=== PATIENT | female | born 2000 | race African-American/Black ===

== ENCOUNTER 2020-03-30 18:11 | Emergency (ER) | payer SELFPAY ==
[2020-03-30 19:30] VITALS: BP 156/92; PULSE 95; RESP 18; TEMP 36.6; O2SAT 100
[2020-03-30 22:05] VITALS: BP 147/86; PULSE 89; RESP 16; O2SAT 99
[2020-03-30] MEDS: KETOROLAC 15 MG/ML VIAL (*BKC) IV PUSH (22:06)
[2020-03-30] MEDS: diphenhydrAMINE HCl INJ 50 MG/ML VIAL 25 MG IV PUSH (22:06)
[2020-03-30] MEDS: PROCHLORPERAZINE EDISYLATE 10 MG/2 ML VIAL 5 MG IV PUSH (22:07)
[2020-03-30] MEDS: SODIUM CHLORIDE 0.9% IV 100 ML 400 ML (22:07)
--- NOTE | 2020-03-30 22:09 | ED.HA ---
HPI - Headache General Chief Complaint: Headache Stated Complaint: Headache Started Friday, Smelling Weird Things Time Seen by Provider: 03/30/20 21:08 Source: patient Mode of arrival: ambulatory Limitations: no limitations History of Present Illness HPI Narrative: A 19-year-old female comes into the emergency department tonight with complaints of a headache. Patient notes that its been behind her right eye. She endorses some numbness and tingling on the side associated with her headache as well. She does also describe some numbness and tingling in her right upper extremity. Patient states that she has had this complaint on and off since July. She states that it has been a muscular issue in the past. She notes that she has felt the peripheral numbness but never the headache like she has today. Patient denies any changes in vision, nausea or vomiting. Related Data Home Medications Medication Instructions Recorded Confirmed No Home Medications 03/30/20 03/30/20 Allergies Allergy/AdvReac Type Severity Reaction Status Date / Time No Known Allergies Allergy Verified 03/30/20 19:37 Review of Systems Review of Systems: Narrative: CONSTITUTIONAL: Denies fever, chills, or sweats. EYES: Denies visual changes, redness, or discharge. ENT: Denies rhinorrhea, congestion, sore throat, or otalgia. CARDIOVASCULAR: Denies chest pain, palpitations, or edema. RESPIRATORY: Denies cough or dyspnea. GASTROINTESTINAL: Denies abdominal pain, nausea, vomiting, or diarrhea. GENITOURINARY: Denies dysuria or hematuria. SKIN: Denies rash or itching. MUSCULOSKELETAL: Denies back pain, joint pain, or myalgia. NEUROLOGIC: Denies numbness, dizziness, or weakness. PSYCHIATRIC: Denies anxiety or depression. [facility] Social History Social History Gender identity (if verbalized by the patient): Female Exam Narrative: Exam Narrative: GENERAL: Well-appearing, well-nourished, and in no acute distress. HEAD: Normocephalic, atraumatic. EYES: PERRLA and EOMI. ENT: Nares clear, no rhinorrhea or epistaxis. Mucous membranes moist. Oropharynx without tonsillar hypertrophy exudate or other lesions. Bilateral TMs pearly mejia nonbulging NECK: Supple. No adenopathy or masses. No carotid bruits or JVD CHEST: Clear to auscultation. No respiratory distress. No wheezes rales or rhonchi HEART: Regular rate and rhythm. No murmur heard. Normal peripheral pulses. ABDOMEN: Soft, nontender, nondistended, normal active bowel sounds. EXTREMITIES: Normal range of motion. No edema. SKIN: Warm, dry, no rash. NEURO: No focal deficits. Alert and oriented x3. PSYCH: Normal mood and affect. Course Reevaluation(s) Reevaluation #1: Reevaluated and provided care update. Approximately an hour after the patient received her medication she stated that her migraine has completely resolved. She denies any further pain and states that the numbness feeling that she was getting on the side of her face has resolved as well. Patient states she is feeling much better and ready to go home. Time: 23:05 Vital Signs Vital signs: Vital Signs Temperature 36.6 C 03/30/20 19:30 Pulse Rate 95 03/30/20 19:30 Respiratory Rate 18 03/30/20 19:30 Blood Pressure 156/92 H 03/30/20 19:30 Pulse Oximetry 100 03/30/20 19:30 Temperature 36.6 C 03/30/20 19:30 Pulse Rate 89 03/30/20 22:05 Respiratory Rate 16 03/30/20 22:05 Blood Pressure 147/86 H 03/30/20 22:05 Pulse Oximetry 99 03/30/20 22:05 MDM - Headache MDM Narrative Medical decision making narrative: In brief this is a 19-year-old female who came into the emergency department with what sounded like an atypical migraine. Patient had a neuro exam completed, no strokelike symptoms were identified. Patient was treated for a migraine. After a migraine cocktail of Toradol, Compazine and Benadryl she did have resolution of her symptoms will be discharged home.
[2020-03-30 23:20] VITALS: BP 112/78; PULSE 90; RESP 18; O2SAT 100
== END 2020-03-30 23:21 | disposition home or self-care (01) ==
PROVIDERS: Emergency Provider Emergency Medicine
DX: G43.109 Migraine with aura, not intractable, without status migrainosus (principal)
CPT/HCPCS: 96361; 96374; 96375; 99284; J0780; J1200; J1885

== ENCOUNTER 2020-04-04 20:21 | Emergency (ER) | payer SELFPAY ==
[2020-04-04 20:52] VITALS: BP 122/65; PULSE 112; RESP 18; TEMP 36.9; O2SAT 100
--- NOTE | 2020-04-04 22:08 | ED.GENADULT ---
HPI - General Adult General Chief complaint: Unspecified Stated complaint: withdrawl from tramadol Time Seen by Provider: 04/04/20 21:52 History of Present Illness HPI narrative: Patient is a 19-year-old female who presents the emergency department with chief complaint of feeling jittery and off base. Patient states that she was seen in the emergency department several days ago for a migraine and was treated with a migraine cocktail. The patient states that immediately after she got the medication she felt as though she was crawling from the inside out and needed to leave immediately. Patient states that she is still felt strange and fidgety very restless. Patient denies vomiting or diarrhea denies focal neurological deficit denies fever or chills Related Data Home Medications Medication Instructions Recorded Confirmed No Home Medications 03/30/20 03/30/20 Allergies Allergy/AdvReac Type Severity Reaction Status Date / Time No Known Allergies Allergy Verified 03/30/20 19:37 Review of Systems Review of Systems: Narrative: A 10 system review of systems was completed on the patient and is negative except for what is stated in the HPI. Nursing and ancillary documentation was reviewed. [facility] Social History Social History Gender identity (if verbalized by the patient): Female Comments Past medical history is significant for recent migraine Social history the patient denies illicit drug use Exam Narrative: Exam Narrative: GENERAL: Well-appearing, well-nourished, and in no acute distress. HEAD: Normocephalic, atraumatic. EYES: PERRLA and EOMI. ENT: Nares clear, no rhinorrhea or epistaxis. Mucous membranes moist. NECK: Supple. CHEST: Clear to auscultation. No respiratory distress. HEART: Regular rate and rhythm. No murmur heard. Normal peripheral pulses. ABDOMEN: Soft, nontender, nondistended, normal active bowel sounds. EXTREMITIES: Normal range of motion. No edema. SKIN: Warm, dry, no rash. NEURO: No focal deficits. Alert and oriented x3. PSYCH: Normal mood and affect. Course Vital Signs Vital signs: Vital Signs Temperature 36.9 C 04/04/20 20:52 Pulse Rate 112 H 04/04/20 20:52 Respiratory Rate 18 04/04/20 20:52 Blood Pressure 122/65 04/04/20 20:52 Pulse Oximetry 100 01/26/21 20:52 Temperature 36.9 C 04/04/20 20:52 Pulse Rate 112 H 04/04/20 20:52 Respiratory Rate 18 04/04/20 20:52 Blood Pressure 122/65 04/04/20 20:52 Pulse Oximetry 100 04/04/20 20:52 Medical Decision Making Vital Signs Vital Signs: Vital Signs Temperature 36.9 C 04/04/20 20:52 Pulse Rate 112 H 04/04/20 20:52 Respiratory Rate 18 04/04/20 20:52 Blood Pressure 122/65 04/04/20 20:52 Pulse Oximetry 100 04/04/20 20:52 Temperature 36.9 C 04/04/20 20:52 Pulse Rate 112 H 04/04/20 20:52 Respiratory Rate 18 04/04/20 20:52 Blood Pressure 122/65 04/04/20 20:52 Pulse Oximetry 100 04/04/20 20:52 Discharge Plan Discharge Clinical Impression: Akathisia Patient Disposition: Home, Self-Care Condition: Stable Instructions: Antibiotic Form, Extrapyramidal Symptoms (ED) Additional Instructions: you may take benadryl 50 mg every 4-6 hrs as needed for the symptoms. Prescriptions: No Action No Home Medications RF: 0 Follow-up/Referrals: PHYSICIAN,EKG MONITOR TECH [Primary Care Provider] - Brodie Bowman MD [Physician] - 3 Days Time of Disposition: 22:11
== END 2020-04-04 22:24 | disposition home or self-care (01) ==
PROVIDERS: Emergency Provider Emergency Medicine
DX: G25.71 Drug induced akathisia (principal); T40.425A Adverse effect of tramadol, initial encounter
CPT/HCPCS: 99281

== ENCOUNTER 2020-05-09 17:47 | Emergency (ER) | payer SELFPAY ==
[2020-05-09 17:54] VITALS: BP 130/80; PULSE 103; RESP 18; TEMP 37.2; O2SAT 100
[2020-05-09 18:17] LABS: Add Urine Microscopic? YES; Appearance Urine Clear (Clear); Bilirubin Urine Negative (Negative); Blood Urine 1+ (Negative); Color Urine Straw (Yellow); Glucose Urine UA Negative (Negative); Ketones Urine Negative (Negative); Leukocyte Esterase Ur Negative LEU/UL (Negative); Mucus Urine Rare /lpf; Nitrate Urine Negative (Negative); Protein Urine Negative (Negative); RBC Urine 0-2 /hpf (0-2); Specific Grav Ur 1.014 (1.001-1.035); Squamous Epithelial Cell Urine Occasional /hpf (Few); Urobilinogen Urine Negative mg/dL (<2.0); WBC Urine 0-3 /hpf
--- NOTE | 2020-05-09 19:55 | ED.FEMALEGU ---
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 Time Seen by Provider: 05/09/20 19:54 Source: patient Mode of arrival: ambulatory Limitations: no limitations History of Present Illness HPI Narrative: Patient is a 19-year-old female complaining of vaginal spotting accompanied by left pelvic pain, 5 out of 10, crampy, nonradiating, started this morning. Patient states that she has Nexplanon on usually does not have any periods. Patient denies any nausea, vomiting, fever or chills. Patient states she took a test at home and was negative. Related Data Home Medications Medication Instructions Recorded Confirmed No Home Medications 03/30/20 03/30/20 Allergies Allergy/AdvReac Type Severity Reaction Status Date / Time No Known Allergies Allergy Verified 03/30/20 19:37 Review of Systems Review of Systems: All systems reviewed & are unremarkable except as noted in HPI and below Constitutional: Constitutional: Denies body ache(s), Denies chills, Denies excessive sweating, Denies fatigue, Denies fever(s), Denies headache(s), Denies lethargy, Denies malaise, Denies weakness and Denies weight loss Eyes: Eyes: Denies blurry vision, Denies change in vision and Denies loss of vision ENT: Denies dizziness, Denies ear discharge, Denies headache(s), Denies lip swelling, Denies epistaxis, Denies nasal congestion, Denies neck pain, Denies throat swelling and Denies tongue swelling Cardiovascular: Cardiovascular: Denies chest pain, Denies chest pain at rest, Denies chest pain with activity, Denies diaphoresis, Denies rapid heart rate, Denies edema, Denies irregular heart rhythm, Denies lightheadedness, Denies palpitations, Denies dyspnea and Denies dyspnea on exertion Respiratory: Respiratory: Denies chest congestion, Denies cough, Denies hemoptysis, Denies dyspnea and Denies dyspnea on exertion Gastrointestinal: Gastrointestinal: Denies abdominal pain, Denies melena, Denies hematochezia, Denies diarrhea, Denies nausea, Denies vomiting and Denies hematemesis Musculoskeletal: Musculoskeletal: Denies abnormal gait, Denies deformity, Denies joint swelling, Denies limited range of motion, Denies neck pain and Denies numbness Neurologic: Denies Abnormal speech present, Denies abnormal gait, Denies confusion, Denies dizziness, Denies headache(s), Denies focal weakness, Denies loss of vision, Denies numbness, Denies Other visual disturbances, Denies Sensory deficit (Neuro) and Denies weakness Psychiatric: Psychiatric: Denies confusion, Denies depression, Denies auditory hallucinations, Denies homicidal ideation and Denies suicidal ideation Endocrine: Endocrine: Denies cold intolerance, Denies excessive sweating, Denies fatigue, Denies heat intolerance and Denies palpitations Hematologic/Lymphatic: Hematologic/Lymphatic: Denies easy bleeding and Denies easy bruising Allergic/Immunologic: Allergic/Immunologic: Denies lip swelling, Denies throat swelling and Denies tongue swelling PMFSH Social History Social History Gender identity (if verbalized by the patient): Female Exam Const: General: cooperative, healthy appearing, comfortable, no acute distress, well developed, alert and awake; No confusion Orientation/consciousness: oriented to person, oriented to place, oriented to time, patient oriented x3 and No confusion Limitations: no limitations HENMT: Head: normal to inspection, normocephalic and atraumatic Ears: hearing grossly normal bilaterally, TM normal on the right and TM normal on the left General nose exam: Normal external nose present, Normal nares present and No nasal discharge present Face and sinus: normal facial exam Mouth: Yes Normal oral and palatal mucosa present, Yes lip normal, Yes tongue normal and Yes oropharynx normal Throat: posterior oropharynx normal, tonsils normal and uvula midline Eyes: General
[2020-05-09 21:17] VITALS: BP 126/80; PULSE 80; RESP 16; TEMP 37.1; O2SAT 100
== END 2020-05-09 21:18 | disposition home or self-care (01) ==
PROVIDERS: Emergency Medicine; Emergency Provider Emergency Medicine
DX: N93.9 Abnormal uterine and vaginal bleeding, unspecified (principal)
CPT/HCPCS: 81001; 81025; 99283

== ENCOUNTER 2020-11-28 20:07 | Emergency (ER) | payer SELFPAY ==
--- NOTE | ~2020-11-28 | XR_ITS ---
EXAMINATION: XR chest 2V DATE: 11/28/2020 21:26 INDICATION: Right-sided chest pain, arm pain, shortness of breath and nausea. TECHNIQUE: PA and lateral views of the chest were obtained. COMPARISON: None FINDINGS: The lungs are clear with no focal airspace opacities, pulmonary edema, pleural effusion or pneumothor ax. The cardiomediastinal silhouette is normal. Visualized bones and soft tissues are unremarkable. IMPRESSION: 1. No acute cardiopulmonary disease. Reviewed, dictated and finalized at location A.
--- NOTE | 2020-11-28 20:24 | ECG_ITS ---
Measurements Intervals [place] Rate: 92 P: 49 [place]: 178 QRS: 72 QRSD: 100 T: 25 QT: 354 QTc: 438 Interpretive Statements SINUS RHYTHM INCOMPLETE RIGHT BUNDLE BRANCH BLOCK BORDERLINE ECG Electronically Signed On 11-29-2020 6:43:57 CDT by James Balderas D.O.
[2020-11-28 20:56] VITALS: BP 129/85; PULSE 95; RESP 18; TEMP 36.8; O2SAT 100
[2020-11-28 21:04] LABS: Basophils Percent Auto 0.6 % (0.2-1.2); Eosinophils Absolute Auto 0.1 K/mm3 (0-0.3); Eosinophils Percent Auto 1.4 % (0-4.4); Hematocrit 42.1 % (37.0-47.0); Hemoglobin 13.8 g/dL (12.0-15.0); Immature Granulocyte Absolute 0.02 K/mm3 (0.00-0.031); Immature Granulocyte Percent A 0.3 % (0-0.5); Lymphocytes Absolute Auto 2.46 K/mm3 (0.9-3.2); Lymphocytes Percent Auto 34.6 % (18.3-44.2); Mean Corpuscular HGB Conc 32.8 g/dl (32-36); Mean Corpuscular Hemoglobin 28.3 pg (26-34); Mean Corpuscular Volume 86.3 fl (80-100); Mean Platelet Volume 8.4 fl (7.4-10.4); Monocytes Absolute Auto 0.5 K/mm3 (0.1-0.6); Monocytes Percent Auto 7.5 % (2.6-8.5); Neutrophils Percent Auto 55.6 % (45.5-73.1); Platelet Count Result 431 k/mm3 (150-375); Red Blood Count 4.88 M/mm3 (4.2-5.4); Red Cell Distribution Width 12.7 % (11.5-14.5); White Blood Count 7.1 K/mm3 (4.5-10.0)
[2020-11-28 21:14] LABS: Anion Gap 10 mmol/L (8-16); Blood Urea Nitrogen 10 mg/dL (7-17); Calcium 9.5 mg/dL (8.4-10.2); Carbon Dioxide 27 mmol/L (22-30); Chloride 103 mmol/L (98-107); Estimated CRCL calculation 115 ml/min; Estimated Glomerular Filt Rate > 60; Glucose 99 mg/dL (65-110); Potassium 4.2 mmol/L (3.4-5.0); Sodium 140 mmol/L (137-145)
[2020-11-28 21:20] LABS: Add Urine Microscopic? NO; Appearance Urine Clear (Clear); Bilirubin Urine Negative (Negative); Blood Urine Negative (Negative); Color Urine Yellow (Yellow); Glucose Urine UA Negative (Negative); Ketones Urine Negative (Negative); Leukocyte Esterase Ur Negative LEU/UL (Negative); Nitrate Urine Negative (Negative); Protein Urine Negative (Negative); Specific Grav Ur 1.023 (1.001-1.035); Urobilinogen Urine Negative mg/dL (<2.0)
--- NOTE | 2020-11-28 22:05 | ED.GENADULT ---
HPI - General Adult General Chief complaint: Unspecified Stated complaint: short of breath/nausea/shoulder pain Time Seen by Provider: 11/28/20 21:52 Source: patient Mode of arrival: ambulatory Limitations: no limitations History of Present Illness HPI narrative: Patient is a 20-year-old female complaining of pelvic pain, nausea, diarrhea, rectal pain, and was short of breath earlier due to the pain but not now. Patient states that all her symptoms started a week ago, concerned about her IUD as a source of the above symptoms, made an appointment to see her gis specialist and has appointment next week. Patient denies chest pain, abdominal pain, vomiting, fever, chills or urinary symptoms. Severity: moderate Quality: other (Cramping) Pain Consistency: constant Exacerbating factors: none Related Data Allergies Allergy/AdvReac Type Severity Reaction Status Date / Time No Known Allergies Allergy Verified 03/30/20 19:37 Review of Systems Review of Systems: All systems reviewed & are unremarkable except as noted in HPI and below Constitutional: Constitutional: Denies body ache(s), Denies chills, Denies excessive sweating, Denies fatigue, Denies fever(s), Denies headache(s), Denies lethargy, Denies malaise, Denies weakness and Denies weight loss Eyes: Eyes: Denies blurry vision, Denies change in vision and Denies loss of vision ENT: Denies dizziness, Denies ear discharge, Denies headache(s), Denies lip swelling, Denies epistaxis, Denies nasal congestion, Denies neck pain, Denies throat swelling and Denies tongue swelling Cardiovascular: Cardiovascular: Denies chest pain, Denies chest pain at rest, Denies chest pain with activity, Denies diaphoresis, Denies rapid heart rate, Denies edema, Denies irregular heart rhythm, Denies lightheadedness, Denies palpitations and Denies dyspnea Respiratory: Respiratory: Denies chest congestion, Denies cough, Denies hemoptysis and Denies dyspnea Gastrointestinal: Gastrointestinal: Denies abdominal pain, Denies melena, Denies hematochezia, Denies vomiting and Denies hematemesis Musculoskeletal: Musculoskeletal: Denies abnormal gait, Denies deformity, Denies joint swelling, Denies limited range of motion, Denies neck pain and Denies numbness Neurologic: Denies Abnormal speech present, Denies abnormal gait, Denies confusion, Denies dizziness, Denies headache(s), Denies focal weakness, Denies loss of vision, Denies numbness, Denies Other visual disturbances, Denies Sensory deficit (Neuro) and Denies weakness Psychiatric: Psychiatric: Denies confusion, Denies depression, Denies auditory hallucinations, Denies homicidal ideation and Denies suicidal ideation Endocrine: Endocrine: Denies cold intolerance, Denies excessive sweating, Denies fatigue, Denies heat intolerance and Denies palpitations Hematologic/Lymphatic: Hematologic/Lymphatic: Denies easy bleeding and Denies easy bruising Allergic/Immunologic: Allergic/Immunologic: Denies lip swelling, Denies throat swelling and Denies tongue swelling PMFSH Social History Social History Gender identity (if verbalized by the patient): Female Comments Past medical history: None Family history: Noncontributory Social history: Non-smoker, no EtOH or drug use Exam Const: General: cooperative, healthy appearing, comfortable, no acute distress, well developed, alert and awake; No confusion Orientation/consciousness: oriented to person, oriented to place, oriented to time, patient oriented x3 and No confusion Limitations: no limitations HENMT: Head: normal to inspection, normocephalic and atraumatic Ears: hearing grossly normal bilaterally, TM normal on the right and TM normal on the left General nose exam: Normal external nose present, Normal nares present and No nasal discharge present Face and sinus: normal facial exam Mouth: Yes Normal oral and palatal mucosa present, Yes lip normal, Yes tongue normal and
[2020-11-28 22:55] LABS: D Dimer 0.27 ug/mL (<0.48)
[2020-11-28 23:15] VITALS: BP 112/80; PULSE 73; RESP 16; O2SAT 100
[2020-11-29] VITALS: BP 102/76; PULSE 88; RESP 14; O2SAT 100
== END 2020-11-29 | disposition home or self-care (01) ==
PROVIDERS: Emergency Medicine; Emergency Provider Emergency Medicine
DX: T83.9XXA Unspecified complication of genitourinary prosthetic device, implant and graft, initial encounter (principal); R19.7 Diarrhea, unspecified; R11.0 Nausea; R10.2 Pelvic and perineal pain
CPT/HCPCS: 36415; 71046; 80048; 81003; 81025; 85025; 85380; 93005; 99284